=== PATIENT | male | born 1990 | race Caucasian/White ===

== ENCOUNTER 2016-04-04 17:58 | Emergency (ER) | payer SELFPAY ==
--- NOTE | 2016-04-04 18:47 | Emergency Department Record ---
History of Present Illness - General Chief Complaint: Back Pain/Injury Stated Complaint: BACK PAIN Time Seen by Provider: 04/04/16 18:24 Source: Patient Mode of Arrival: Ambulatory Limitations: No limitations - History of Present Illness Initial Comments: pt twisted the wrong way a few days ago and has been having increased pain that radiates down r leg. no problems with bowel or bladder. Onset/Timin -: Days(s) Similar Symptoms Previously: Yes Place: Home Radiation: Left leg, Right leg Severity scale (1-10): 9 Quality: Sharp, Stabbing Consistency: Constant Improves With: None Worsens With: Movement Context: Unknown Treatments Prior to Arrival: ASA - Related Data Home Medications Medication Instructions Recorded Confirmed Last Taken Aspirin [Ecotrin] 325 mg PO 04/04/16 04/04/16 08:30 Previous Rx's Medication Instructions Recorded Cyclobenzaprine HCl [Flexeril] 10 mg PO TID #14 tablet 04/04/16 Hydrocodone/Acetaminophen [[place] 1 tab PO Q6H PRN #10 tab 04/04/16 5mg/325mg] Ibuprofen [Motrin 600Mg] 600 mg PO Q6H #20 tablet 04/04/16 Allergies Allergy/AdvReac Type Severity Reaction Status Date / Time No Known Drug Allergies Allergy Verified 04/04/16 18:25 Travel Screening - Travel/Exposure Within Last 30 Days Have you traveled within the last 30 days?: No - Travel/Exposure Within Last Year Have you traveled outside the [place] in the last year?: No - Additonal Travel Details Have you been exposed to anyone with a communicable illness?: No - Travel Symptoms Symptom Screening: None Review of Systems Reviewed: No additional complaints except as noted below Constitutional: Reports: As per HPI. Denies: Chills, Fever, Malaise, Night sweats, Weakness, Weight change Eyes: Reports: As per HPI. Denies: Eye discharge, Eye pain, Photophobia, Vision change ENT: Reports: As per HPI. Denies: Congestion, Dental pain, Ear pain, Epistaxis , Hearing loss, Throat pain Respiratory: Reports: As per HPI. Denies: Cough, Dyspnea, Hemoptysis, Stridor, Wheezes Cardiovascular: Reports: As per HPI. Denies: Arrhythmia, Chest pain, Dyspnea on exertion, Edema, Murmurs, Orthopnea, Palpitations, Paroxysmal nocturnal dyspnea, Rheumatic Fever, Syncope Endocrine: Reports: As per HPI. Denies: Fatigue, Heat or cold intolerance, Polydipsia, Polyuria Gastrointestinal: Reports: As per HPI. Denies: Abdominal pain, Constipation, Diarrhea, Hematemesis, Hematochezia, Melena, Nausea, Vomiting Genitourinary: Reports: As per HPI. Denies: Dysuria, Frequency, Hematuria, Incontinence, Retention, Testicular pain, Testicular mass, Urgency Musculoskeletal: Reports: As per HPI. Denies: Arthralgia, Back pain, Gout, Joint swelling, Myalgia, Neck pain Skin: Reports: As per HPI. Denies: Bruising, Change in color, Change in hair/ nails, Lesions, Pruritus, Rash Neurological: Reports: As per HPI. Denies: Abnormal gait, Confusion, Headache, Numbness, Paresthesias, Seizure, Tingling, Tremors, Vertigo, Weakness Psychiatric: Reports: As per HPI. Denies: Anxiety, Auditory hallucinations, Depression, Homicidal thoughts, Suicidal thoughts, Visual hallucinations Hematological/Lymphatic: Reports: As per HPI. Denies: Anemia, Blood Clots, Easy bleeding, Easy bruising, Swollen glands Past Medical History - SOCIAL HISTORY Smoking Status: Former smoker Alcohol Use: Rare Drug Use: Heavy Drug Use Detail:: Marijuana - RESPIRATORY Hx Respiratory Disorders: No - CARDIOVASCULAR Hx Cardio Disorders: No - NEURO Hx Neuro Disorders: No - GI Hx GI Disorders: No - Hx Genitourinary Disorders: No - ENDOCRINE Hx Endocrine Disorders: No - MUSCULOSKELETAL Hx Musculoskeletal Disorders: No - PSYCH Hx Psych Problems: No - HEMATOLOGY/ONCOLOGY Hx Hematology/Oncology Disorders: No Family Medical History Any Significant Family History?: Yes Hx Diabetes: Grandparents Hx HTN: Grandparents Physical Exam - General General Appearance: Alert, Oriented x3, Cooperative, Mild distress - Head Head exam: Normal inspection - Eye Eye exam: Normal appearance, PERRL, EOMI Pupils: Normal accommodation - ENT ENT exam: Normal exam, Mucous membranes moist, Normal external ear exam, Normal orophraynx Ear exam: Normal external inspection. negative: External canal tenderness Nasal Exam: Normal inspection. negative: Discharge, Sinus tenderness Mouth exam: Normal external inspection, Tongue normal Teeth exam: Normal inspection. negative: Dental caries Throat exam: Normal inspection. negative: Tonsillar erythema, Tonsillar exudate - Neck Neck exam: Normal inspection, Full ROM. negative: Tenderness - Respiratory Respiratory exam: Normal lung sounds bilaterally. negative: Respiratory distress - Cardiovascular Cardiovascular Exam: Regular rate, Normal rhythm, Normal heart sounds - GI/Abdominal GI/Abdominal exam: Soft, Normal bowel sounds. negative: Tenderness - Rectal Rectal exam: Deferred - exam: Deferred - Extremities Extremities exam: Normal inspection, Full ROM, Normal capillary refill. negative: Tenderness - Back Back exam: Reports: Full ROM, Muscle spasm, Paraspinal tenderness, Tenderness. Denies: Rash noted - Neurological Neurological exam: Alert, Normal gait, Oriented X3, Reflexes normal - Psychiatric Psychiatric exam: Normal affect, Normal mood - Skin Skin exam: Dry, Intact, Normal color, Warm Course Vital Signs 04/04/16 18:14 Temperature 97.9 F Pulse Rate 55 L Respiratory 18 Rate Blood Pressure 135/70 Pulse Ox 98 Disposition Disposition: Discharge Clinical Impression: Radiculopathy due to disorder of intervertebral disc of lumbar spine Disposition: Home, Self-Care Condition: (1) Good Instructions: Lumbar Radiculopathy (ED) Additional Instructions: follow up with family doctor and with dr [place]. return sooner if worse. no lifting more then 5 lbs for 5 days Prescriptions: Cyclobenzaprine HCl [Flexeril] 10 mg PO TID #14 tablet Ibuprofen [Motrin 600Mg] 600 mg PO Q6H #20 tablet Hydrocodone/Acetaminophen [[place] 5mg/325mg] 1 tab PO Q6H PRN #10 tab PRN Reason: Pain - General Forms: Patient Portal Access
[2016-04-04] MEDS ORDERED: HYDROMORPHONE HCL 1 MG/ML CPJ IM ONE (18:49)
[2016-04-04] MEDS ORDERED: ORPHENADRINE CITRATE 60MG/2ML VIAL IM ONE (18:49)
[2016-04-04] MEDS ORDERED: PROMETHAZINE HCL 25 MG/ML VIAL IM ONE (18:49)
[2016-04-04] MEDS ORDERED: KETOROLAC 30 MG/ML VIAL IM ONE (18:49)
== END 2016-04-04 19:28 | disposition home or self-care (01) ==
LOC: ER 17:58
DX: M54.16 Radiculopathy, lumbar region (principal)
CPT/HCPCS: J1885; J1170; 96372; 99283; J2360; J2550

== ENCOUNTER 2016-08-30 06:46 | Day surgery (SDC) | payer OTHER ==
[2016-08-30] MEDS ORDERED: DEXAMETHASONE PRESERVATIVE FREE 10MG/ML VIAL IV ONE (13:36)
[2016-08-30] MEDS ORDERED: LIDOCAINE 1% W/EPI 1:200,000 MPF 30ML SQ ONE (13:36)
[2016-08-30] MEDS ORDERED: OXYCODONE/APAP 10MG-325MG TABLET PO ONE (13:36)
[2016-08-30] MEDS ORDERED: BUPIVACAINE 0.5% W/EPI MPF 30 ML VIAL IVP ONE (13:36)
[2016-08-30] MEDS ORDERED: MIDAZOLAM HCL 2MG/2ML VIAL IV ONE (14:00)
[2016-08-30] MEDS ORDERED: LIDOCAINE 2% MDV (20MG/ML) 20ML VIAL IV ONE (14:00)
[2016-08-30] MEDS ORDERED: PROPOFOL 10 MG/ML VIAL IV ONE (14:00)
[2016-08-30] MEDS ORDERED: FENTANYL PF 100MCG/2ML VIAL IV ONE (14:00)
--- NOTE | 2016-08-30 14:57 | Operative Note - [place] ---
DATE OF SURGERY: 08/30/16 PREOPERATIVE DIAGNOSIS: LUMBAR SPONDYLOSIS WITHOUT MYELOPATHY, ICD-10 CODE = M47.812. OPERATION: RADIOFREQUENCY RHIZOTOMY, BILATERAL LUMBAR FACETS, 2-3, 3-4, AND 4- 5. SURGEON: ADA JOHNSON D.O. ANESTHESIA: LOCAL SEDATION. ANESTHESIA PROVIDER: DYLON FRAZIER CRNA. INDICATION: This patient presents with fusion L5-S1 and back pain. Examination shows tenderness of the lumbar spine above the incision. Range of motion causing pain in the low back with extension. Diagnostics confirm the fusion and multiple levels of spondylosis. A facet series 75-90% pain control. Due to the failure of therapy and success of facet series, he presents for rhizotomy for more long-term relief. PROCEDURE: Intravenous line, vital sign monitoring, IV sedation. Prepped and draped in sterile technique. Under imaging, facet levels lumbar spine 2-3, 3-4, and 4-5 were identified and marked bilateral. Skin infiltrated. A 20-gauge rhizotomy cannula positioned. Stimulation trials conducted. Rhizotomy burn performed. Local with anti-inflammatory in the sites. Topical antibiotic and sterile dressing applied. We will monitor and evaluate. cc: Dr. Rodriguez JOB NUMBER: [id number] MTDD
== END 2016-08-30 08:55 | disposition home or self-care (01) ==
LOC: SUR 06:46
PROVIDERS: ATTEND Pain Medicine Interventional Pain Medicine
DX: M47.812 Spondylosis without myelopathy or radiculopathy, cervical region (principal)
CPT/HCPCS: 64635; 64636 ×2; 01936; J1100; J3010

== ENCOUNTER 2016-09-05 18:10 | Emergency (ER) | payer SELFPAY ==
[2016-09-05] MEDS ORDERED: IBUPROFEN 400 MG TABLET PO ONE (18:26)
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
--- NOTE | 2016-09-06 10:34 | RADIOLOGY REPORT ---
EXAM: LEFT FOOT, THREE VIEWS HISTORY: LEFT FOOT INJURY, HIT WITH PROJECTILE WHILE MOWING AT WORK. TECHNIQUE: Three views of the left foot were obtained. Comparison: None. Encounter: Initial. FINDINGS: No bone or joint abnormality. No radiodense foreign body. IMPRESSION: NEGATIVE LEFT FOOT EXAMINATION. JOB NUMBER: [id number] MTDD
== END 2016-09-05 19:13 | disposition home or self-care (01) ==
LOC: ER 18:10
DX: S90.32XA Contusion of left foot, initial encounter (principal); W22.8XXA Striking against or struck by other objects, initial encounter; Y93.H2 Activity, gardening and landscaping; Y99.0 Civilian activity done for income or pay
CPT/HCPCS: 99283

== ENCOUNTER 2017-03-12 11:26 | Emergency (ER) | payer OTHER ==
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
[2017-03-12] MEDS ORDERED: KETOROLAC 30 MG/ML VIAL IM ONE (11:43)
[2017-03-12] MEDS ORDERED: ORPHENADRINE CITRATE 60MG/2ML VIAL IM ONE (11:43)
[2017-03-12] MEDS ORDERED: HYDROCODONE/APAP 5/325MG TABLET PO ONE ×2 (12:47→13:14)
--- NOTE | 2017-03-12 15:09 | RADIOLOGY REPORT ---
EXAM: LUMBAR SPINE, AP AND LATERAL VIEWS HISTORY: ACUTE LOWER BACK PAIN WITH COCCYGEAL PAIN POST FALL. PRIOR LUMBAR FUSION. TECHNIQUE: AP and lateral views of the lumbar spine were obtained. Comparison: Same day sacrum and coccyx. MRI of the lumbar spine without contrast dated 10/16/09. FINDINGS: There are five non-rib bearing lumbar type vertebra. There are interbody spacers at the L5-S1 level associated with minimal anterolisthesis of L5 on S1. The vertebral bodies are otherwise normal in alignment and height. No acute fracture nor destructive bone lesion is seen. Bilateral spondylolysis of L5 is redemonstrated when compared to the prior MRI examination. There are mild degenerative changes within the lower lumbar facets. The sacroiliac joints are maintained. IMPRESSION: 1. FINDINGS CONSISTENT WITH ANTERIOR INTERBODY FUSION AT THE L5-S1 LEVEL WITH MINIMAL PERSISTENT ANTEROLISTHESIS OF L5 ON S1. BILATERAL SPONDYLOLYSIS OF L5 REDEMONSTRATED. 2. NO NEW FRACTURE OR SUBLUXATION. 3. MILD DEGENERATIVE CHANGES OF THE LOWER LUMBAR FACETS. 4. NOT MENTIONED ABOVE IS MINOR DISK SPACE NARROWING AT THE L4-L5 LEVEL. JOB NUMBER: [id number] AND [id number] [facility]
--- NOTE | 2017-03-12 15:21 | RADIOLOGY REPORT ---
EXAM: SACRUM AND COCCYX HISTORY: SACROCOCCYGEAL PAIN POST FALL. TECHNIQUE: Three views of the sacrum and coccyx were obtained. Comparison: Same day radiographic examination of the lumbar spine. Radiographic examination of the lumbar spine dated 11/25/15. FINDINGS: There is normal bone mineralization. Interbody spacers are demonstrated at the L5-S1 level. There is mild persistent anterolisthesis of L5 on S1 when compared to the radiographic examination dated 11/25/15, stable. Bilateral spondylolysis of L5 is again suggested. No definite acute fracture nor subluxation. The facet joints are maintained. The hip joints are maintained though there is questionable mild cam shaft deformity of the proximal left femur which predisposes to femoral acetabular impingement. IMPRESSION: 1. NO DEFINITE ACUTE FRACTURE NOR SUBLUXATION. NO DESTRUCTIVE BONE LESION. 2. POST SURGICAL CHANGES AT THE LUMBOSACRAL JUNCTION. JOB NUMBER: [id number] MTDD
== END 2017-03-12 13:27 | disposition home or self-care (01) ==
LOC: ER 11:26
DX: S30.0XXA Contusion of lower back and pelvis, initial encounter (principal); M53.3 Sacrococcygeal disorders, not elsewhere classified; W00.0XXA Fall on same level due to ice and snow, initial encounter; Y99.0 Civilian activity done for income or pay
CPT/HCPCS: 99283; 96372; 99284; 72100; 72220; J1885; J2360

== ENCOUNTER 2018-07-10 20:33 | Emergency (ER) | payer SELFPAY ==
[2018-07-10] MEDS ORDERED: CLINDAMYCIN 600MG/50ML PREMIX 600 MG/50 ML BAG IVPB ONE (20:57)
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
[2018-07-10] MEDS ORDERED: **ER** KETAMINE HCL 500MG/10ML VIAL IV ONE (21:24)
[2018-07-10] MEDS ORDERED: MIDAZOLAM HCL 2MG/2ML VIAL IV ONE (21:24)
[2018-07-10] MEDS ORDERED: ONDANSETRON HCL IV 4 MG/2 ML VIAL IVP ONE (21:52)
[2018-07-10] MEDS ORDERED: PROPOFOL 10 MG/ML VIAL IVP ONE ×3 (23:36→23:59)
== END 2018-07-10 23:12 | disposition home or self-care (01) ==
LOC: ER 20:33
DX: L03.113 Cellulitis of right upper limb (principal); F17.210 Nicotine dependence, cigarettes, uncomplicated
CPT/HCPCS: 10060; 96365; 99152; 99284; J2405